=== PATIENT | male | born 1980 | race Caucasian/White ===

== ENCOUNTER 2019-12-28 04:45 | Inpatient (IN) | payer MEDICAID ==
[~2019-12-28] VITALS: Ht 177.8 cm; Wt 69.7 kg
--- NOTE | 2019-12-28 05:00 | NUR ---
PT BIB [facility] AND THEN AMBULANCE TONIGHT A TRANSFER FROM [facility]. PER EMS, PT WAS AT WORK AND HAD A SEIZURE DUE TO ETOH W/D. PT DRINKS A 12 PACK OF BEER DAILY AND LIQUOR WELL. PT WITH HISTORY OF ETOH ABUSE. PT WAS GIVEN 6 MG OF ATIVAN AT TRANSFERRING FACILITY AND 4 MG ZOFRAN. NO OTHER INTERVENTIONS WERE PERFORMED EN ROUTE TO [facility] ED. UPON ARRIVAL TO [facility] ED, PT VSS. PT ASLEEP IN [facility]; MICHELLE. PT ATTACHED TO ALL VS AND CARDIAC MONITORS. TECH AT FOR PT EKG. AWAITING ERP AT THIS TIME.
--- NOTE | 2019-12-28 05:10 | NUR ---
DR GORMAN AT FOR PT HISTORY AND ASSESSMENT.
[2019-12-28] MEDS ORDERED: DOCUSATE 100 MG CAPSULE PO PRN (05:30)
[2019-12-28] MEDS ORDERED: LABETALOL 5MG/ML, 20ML IVPush PRN (05:30)
[2019-12-28] MEDS ORDERED: LORazepam 2 MG/ML, 1ML IV PRN ×5 (05:30)
[2019-12-28] MEDS ORDERED: ONDANSETRON 2MG/ML, 2ML IVPush PRN (05:30)
[2019-12-28] MEDS: POTASSIUM CHLORIDE 20 MEQ, MAGNESIUM SULFATE 2 GM, THIAMINE 200 MG, MVI ADULT 10 ML, FO... IV SCH ×2 (06:00→18:21)
--- NOTE | 2019-12-28 06:24 | NUR ---
PT MEDICATED PER JUN. PT VSS AND UPDATED IN EMR.
--- NOTE | 2019-12-28 06:39 | NUR ---
PT ASLEEP IN [facility] AT THIS TIME; NADN. IV FLUIDS RUNNING PER JUN. PT HAS CALL LIGHT WITHIN REACH.
--- NOTE | 2019-12-28 06:53 | NUR ---
REPORT OF PT TO NANCY AVILEZ. ALL QUESTIONS ANSWERED.
--- NOTE | 2019-12-28 06:56 | NUR ---
REPORT RECEIVED, CARE ASSUMED. PT SLEEPING, AROUSES EASILY. SR PER MONITOR. IV INFUSING WITHOUT REDNESS/SWELLING. NO NEEDS EXPRESSED AT THIS TIME.
--- NOTE | 2019-12-28 08:09 | NUR ---
PT CONT SLEEPING, AROUSES TO NAME. NO SEIZURE ACTIVITY NOTED. IV INFUSING WITHOUT REDNESS/SWELLING. PT UPDATED ON POC. IE: WAITING FOR ROOM ASSIGNMENT. NO NEEDS EXPRESSED AT THIS TIME.
--- NOTE | 2019-12-28 08:40 | NUR ---
PT UP TO SIDE OF BED, USED URINAL. PT PROVIDED WITH MEAL TRAY. PT ASKING "WHAT THE PLAN IS?" DISCUSSED WITH PT, HE WILL BE SEEN BY HOSPITALIST AND FURTHER DECISIONS WILL BE MADE TO PLAN. ASKED PT IF HE WANTED TO DETOX. PT REPLIES "NO"
--- NOTE | 2019-12-28 08:56 | NUR ---
BEDSIDE REPORT FROM RAGHAV CRUZ.
--- NOTE | 2019-12-28 08:59 | NUR ---
REPORT TO LALITA CRUZ
[2019-12-28] MEDS ORDERED: CHLORDIAZEPOXIDE 25 MG CAPSULE ONE (09:39)
[2019-12-28] MEDS: CHLORDIAZEPOXIDE 25 MG CAPSULE PO SCH ×4 (09:42→21:16)
--- NOTE | 2019-12-28 10:10 | NUR ---
TASK RN: PT SLEEPING, NO SEIZURE ACTIVITY NOTED. IV INFUSING WITHOUT REDNESS/SWELLING. SR PER MONITOR.
--- NOTE | 2019-12-28 11:05 | NUR ---
REPORT GIVEN TO SANKET CRUZ.
[2019-12-28 11:39] VITALS: BP 121/83
[2019-12-28 13:00] VITALS: BP 122/84
[2019-12-28] MEDS: NICOTINE 21 MG/24 HR PATCH.TD24 TD SCH (15:52)
[2019-12-28 18:39] VITALS: BP 111/78
[2019-12-29 00:05] VITALS: BP 131/84
[2019-12-29] MEDS: POTASSIUM CHLORIDE 20 MEQ, MAGNESIUM SULFATE 2 GM, THIAMINE 200 MG, MVI ADULT 10 ML, FO... IV SCH (03:51)
[2019-12-29 05:45] LABS: ANION GAP 8 mmol/L (5-15); CHLORIDE 109 mmol/L (98-107)
[2019-12-29 06:30] LABS: MEAN CORPUSCULAR HEMOGLOBIN 34.9 pg (27.5-34.5); MEAN CORPUSCULAR HGB CONC 33.4 g/dL (33.2-36.2); MEAN CORPUSCULAR VOLUME 104.6 fL (81-97); MEAN PLATELET VOLUME 9.5 fL (7.4-10.4); PLATELET COUNT 123 x10^3/uL (130-400); RED BLOOD COUNT 3.98 x10^6/uL (4.38-5.82); RED CELL DISTRIBUTION WIDTH 12.9 % (9.4-14.8)
[2019-12-29 06:34] LABS: BASOPHILS # (AUTO) 0.02 x10^3/uL (0-0.1); BASOPHILS % (AUTO) 1 % (0-1); EOSINOPHILS # (AUTO) 0.07 x10^3/uL (0-0.4); EOSINOPHILS % (AUTO) 2 % (1-7); LYMPHOCYTES # (AUTO) 1.63 x10^3/uL (1-3.4); LYMPHOCYTES % (AUTO) 41 % (22-44); MD SCAN; MONOCYTES # (AUTO) 0.55 x10^3/uL (0.2-0.8); MONOCYTES % (AUTO) 14 % (2-9); NEUTROPHILS # (AUTO) 1.67 x10^3/uL (1.8-6.8); NEUTROPHILS % (AUTO) 42 % (42-75)
[2019-12-29] MEDS: CHLORDIAZEPOXIDE 25 MG CAPSULE PO SCH (06:35)
[2019-12-29 07:48] VITALS: BP 131/82
[2019-12-29] MEDS: NICOTINE 21 MG/24 HR PATCH.TD24 TD SCH (08:41)
[2019-12-29] MEDS ORDERED: POTASSIUM CHLORIDE 20 MEQ TAB.ER.PRT ONE (08:43)
[2019-12-29] MEDS ORDERED: POTASSIUM CHLORIDE 20 MEQ TAB.ER.PRT PO ONE ×2 (08:45→12:00)
== END 2019-12-29 10:57 | disposition home or self-care (01) | DRG 53 ==
LOC: ED 05:49 → EDIP 06:00 → 5SO 11:27 → DCLOUNGE 12-29 10:51
PROVIDERS: ADMIT Family Medicine; ATTEND Hospitalist
DX: R56.9 Unspecified convulsions (principal); E87.2 Acidosis; F10.231 Alcohol dependence with withdrawal delirium; F17.200 Nicotine dependence, unspecified, uncomplicated; E86.0 Dehydration; R74.0 Nonspecific elevation of levels of transaminase and lactic acid dehydrogenase [LDH]; Z71.6 Tobacco abuse counseling
CPT/HCPCS: 36415; 80048; 82550; 85025; 93005; G0378; J3411; J3475; J3480; J7042; J2060